=== PATIENT | male | born 1995 | race Caucasian/White ===

== ENCOUNTER 2024-05-31 14:49 | Outpatient (AMB) | payer OTHER, SELFPAY ==
--- NOTE | 2024-05-31 14:55 | AM.OFFWIN_ITS ---
Intake Vital Signs 05/31/24 14:57 Height 5 ft 4 in Weight 149 lb BMI 25.6 BP 116/68 Blood Pressure Location Lt brachial Position Sitting Pulse 91 Pulse Source Pulse Oximeter Temp 98.1 F Temp Source Oral Pulse Oximetry (%) 98 Oxygen Delivery Method Room Air Intake Visit Reasons: Listen to lungs Intake Note: pt is here c/o cough and chest tightness with inspiration. Started 3 days ago Patient Tobacco Use Status: Never used Tobacco Allergies No Known Allergies Allergy (Verified 05/31/24 14:55) Do you need a note to return to daycare/school/sports/work: No HPI HPI Comments History of Present Illness Details 28-year-old male presents today complain ing of a cough x3 days. Has a past medical history of asthma. He denies any nasal congestion fever chills sweats shortness of breath or chest pain PFSH Social History Patient Tobacco Use Status: Never used Tobacco Review of Systems Const All systems reviewed & are unremarkable except as noted in HPI and below Eyes Reports no additional complaints ENT Reports no additional complaints Card Reports no additional complaints Resp Reports cough GI Reports no additional complaints Physical Exam Vital Signs: Last Vital Signs Temp 98.1 F 05/31/24 14:57 Pulse 91 05/31/24 14:57 BP 116/68 05/31/24 14:57 Pulse Ox 98 05/31/24 14:57 Oxygen Delivery Method Room Air 05/31/24 14:57 BMI result Body Mass Index 25.6 Const General: healthy appearing and comfortable HEENT Head: Yes normal to inspection, Yes normocephalic and Yes atraumatic Ears: hearing grossly normal bilaterally, external ears normal, TM's normal bilaterally and TM normal on the right General nose exam: Normal external nose present Face and sinus: Yes normal facial exam Throat: Yes posterior oropharynx normal Resp Effort & Inspection: normal respiratory effort Auscultation: clear to auscultation bilaterally Cardio Rate: regular rate Rhythm: regular rhythm Heart sounds: S1 normal heart sound present and S2 normal heart sound present Assessment & Plan Assessment & Plan (1) Cough: Code(s): R05.9 - Cough, unspecified Plan: The patient has an albuterol inhaler at home which he will use once a day for the next 5 days. Return to clinic or PCP if other symptoms emerge Plan See plan Coding Level of Care Code Est Pt Level 3 (36032) Diagnoses Cough R05.9
[2024-05-31 14:57] VITALS: BP 116/68; PULSE 91; TEMP 36.7; O2SAT 98; BMI 25.6
== END 2024-05-31 15:27 | disposition home or self-care (01) ==
PROVIDERS: Visit Provider Physician Assistant Medical
DX: R05.9 Cough, unspecified (principal)
CPT/HCPCS: 99213